=== PATIENT | female | born 2005 | race Two or more races ===

== ENCOUNTER 2023-09-03 11:30 | Emergency (ER) | payer MEDICAID ==
[~2023-09-03] VITALS: Ht 162.6 cm; Wt 68.0 kg
[2023-09-03] MEDS ORDERED: IBUP-1955 PO (12:09)
[2023-09-03] MEDS ORDERED: IBUPROFEN 600 MG TABLET ONE (12:12)
[2023-09-03] MEDS: IBUPROFEN 600 MG TABLET PO ONE (12:14)
[2023-09-03 12:51] VITALS: BP 121/69; TEMP 98.6; O2SAT 100
== END 2023-09-03 13:30 | disposition home or self-care (01) ==
LOC: ER 11:35
DX: S50.01XA Contusion of right elbow, initial encounter (principal); W01.198A Fall on same level from slipping, tripping and stumbling with subsequent striking against other object, initial encounter; Y93.89 Activity, other specified; Y92.89 Other specified places as the place of occurrence of the external cause; Y99.8 Other external cause status
CPT/HCPCS: 73080-TC